=== PATIENT | female | born 1945 | race Caucasian/White ===

== ENCOUNTER 2023-05-24 19:13 | Emergency (ER) | payer MEDICARE ==
[~2023-05-24] VITALS: Ht 160 cm; Wt 96.8 kg
[2023-05-24 19:19] VITALS: PULSE 122; RESP 26; O2SAT 96
[2023-05-24] MEDS ORDERED: LEVALBUTEROL 1.25 MG/0.5 ML NEBU INH ONE (19:20)
[2023-05-24] MEDS ORDERED: IPRATROPIUM 0.02% 0.5 MG/2.5 ML NEBU INH ONE (19:21)
[2023-05-24] MEDS: LEVALBUTEROL 1.25 MG/0.5 ML NEBU INH ONE (19:25)
[2023-05-24] MEDS: IPRATROPIUM 0.02% 0.5 MG/2.5 ML NEBU INH ONE ×2 (19:25→23:03)
[2023-05-24 19:26] VITALS: PULSE 105; PULSE 129; RESP 18; O2SAT 97; O2SAT 99
[2023-05-24] MEDS ORDERED: methylPREDNISolone SS 125 MG/2 ML VIAL ONE (19:37)
[2023-05-24] MEDS: methylPREDNISolone SS 125 MG in WATER STERILE 2 ML IV ONE (19:40)
[2023-05-24 19:53] LABS: BASOPHILS # (AUTO) 0.1 K/uL (0.00-0.22); BASOPHILS % (AUTO) 0.9 % (0.0-2.0); EOSINOPHILS # (AUTO) 0.3 K/uL (0-0.4); EOSINOPHILS % (AUTO) 2.9 % (0.0-4.0); HEMATOCRIT 32.6 % (36-48); HEMOGLOBIN 11.3 g/dL (12.0-16.0); MEAN CORPUSCULAR HEMOGLOBIN 30 pg (27-31); MEAN CORPUSCULAR HGB CONC 35 g/dL (33-37); MEAN CORPUSCULAR VOLUME 87.3 fL (80-94); NEUTROPHILS # (AUTO) 7.1 K/uL (1.8-7.7); NEUTROPHILS % (AUTO) 74.2 % (42.2-75.2); PLATELET COUNT (AUTO) 330 K/uL (140-450); RED BLOOD CELL COUNT(AUTO) 3.74 MIL/uL (4.20-5.40); RED CELL DISTRIBUTION WIDTH 13.6 % (11.6-13.7); WHITE BLOOD COUNT (AUTO) 9.5 K/uL (4.8-10.8)
[2023-05-24 20:02] LABS: ANION GAP 13.9 (8-16); CALCIUM 9.1 mg/dL (8.5-10.1); CARBON DIOXIDE 26.1 mmol/L (21-32); CHLORIDE 94 mmol/L (98-107); CREATININE 1.1 mg/dL (0.6-1.3); GLUCOSE 146 mg/dL (74-106); SODIUM SERUM 130 mmol/L (136-145); UREA NITROGEN, BLOOD 15 mg/dL (7-18)
[2023-05-24 20:11] LABS: ALANINE AMINOTRANSFERASE 31 U/L (12-78); ALBUMIN 2.9 g/dL (3.4-5.0); ALKALINE PHOSPHATASE 52 U/L (50-136); ASPARTATE AMINOTRANSFERASE 35 U/L (15-37); BILIRUBIN,DIRECT 0.1 mg/dL (0.0-0.3); LACTIC ACID 1.6 mmol/L (0.4-2.0); TOTAL BILIRUBIN 0.4 mg/dL (0.0-1.0); TOTAL PROTEIN, SERUM 7.1 g/dL (6.4-8.2)
[2023-05-24] MEDS: ALBUTEROL 0.083% 2.5 MG/3 ML NEBU INH ONE ×2 (20:35→23:03)
[2023-05-24] MEDS ORDERED: ONDANSETRON 4 MG/2 ML VIAL ONE (20:37)
[2023-05-24] MEDS: ONDANSETRON 4 MG/2 ML VIAL IVP ONE (20:42)
[2023-05-24] MEDS ORDERED: cefTRIAXone 1,000 MG VIAL ONE (20:55)
[2023-05-24 21:18] VITALS: O2SAT 93
[2023-05-24] MEDS: KETOROLAC 30 MG/ML VIAL IVP ONE (21:38)
[2023-05-24] MEDS: ACETAMINOPHEN EXTRA STRENGTH 500 MG TAB PO ONE (21:39)
[2023-05-24] MEDS ORDERED: AZITHROMYCIN 500 MG INJ VIAL IV ONE (21:59)
[2023-05-24] MEDS: AZITHROMYCIN 500 MG in DEXTROSE 5% 250 ML IV ONE (22:22)
[2023-05-24 23:08] VITALS: PULSE 103; RESP 24; O2SAT 92
[2023-05-24 23:38] VITALS: PULSE 101; RESP 22; O2SAT 98
[2023-05-24] MEDS: BUDESONIDE 0.5 MG/2 ML NEBU INH ONE (23:38)
[2023-05-25 00:39] LABS: FLU A ANTIGEN POSITIVE (NEGATIVE); FLU B ANTIGEN NEGATIVE (NEGATIVE)
[2023-05-25 01:19] VITALS: BP 112/47; PULSE 89; RESP 22; O2SAT 98
== END 2023-05-25 02:54 | disposition short-term general hospital (02) ==
LOC: MED 19:13
DX: J96.00 Acute respiratory failure, unspecified whether with hypoxia or hypercapnia (principal); Z20.822 Contact with and (suspected) exposure to COVID-19; J18.9 Pneumonia, unspecified organism; J44.9 Chronic obstructive pulmonary disease, unspecified; Z79.899 Other long term (current) drug therapy
CPT/HCPCS: 36415; 71045; 80048; 80076; 83605; 83880; 84484; 85025; 87040; 87426; 87804; 93005; 94640; 96365; 96367; 96375; 99291; J0456; J0696; J1885; J2405; J2930; J7612; J7613; J7626; J7644; 99285